=== PATIENT | female | born 1995 | race Caucasian/White ===

== ENCOUNTER 2016-09-18 02:50 | Inpatient (IN) | payer MEDICAID ==
[~2016-09-18] VITALS: Ht 154.9 cm; Wt 60.4 kg
[2016-09-18 03:11] VITALS: Ht 154.9 cm; Wt 60.4 kg
[2016-09-18 03:12] VITALS: BP 116/85; PULSE 80; RESP 18
[2016-09-18] MEDS ORDERED: PREN1TAB79 PO (03:14)
[2016-09-18] MEDS ORDERED: LACTATED RINGER'S 1,000 ML IV SCH (04:36)
[2016-09-18] MEDS ORDERED: CARBOPROST 250 MCG INJ IM PRN ×2 (05:00→17:30)
[2016-09-18] MEDS ORDERED: LACTATED RINGER'S 1,000 ML IV PRN (05:00)
[2016-09-18] MEDS ORDERED: METHYLERGONOVINE 0.2 MG INJ IM PRN ×2 (05:00→17:30)
[2016-09-18] MEDS ORDERED: AMPICILLIN 2 GM/NS (PMX) 100 ML IV ONE (05:00)
[2016-09-18] MEDS ORDERED: OXYTOCIN 30 UNITS/LR 500 ML IV SCH ×2 (05:00→10:30)
[2016-09-18] MEDS ORDERED: IBUPROFEN 600 MG TAB PO PRN (05:00)
[2016-09-18] MEDS ORDERED: LIDOCAINE 1% (MPF) 30 ML INJ INJ PRN (05:00)
[2016-09-18] MEDS ORDERED: BUTORPHANOL 2 MG INJ IV PRN (05:00)
[2016-09-18] MEDS ORDERED: MISOPROSTOL 200 MCG TAB PR PRN ×2 (05:00→17:30)
[2016-09-18] MEDS ORDERED: OXYTOCIN 30 UNITS/LR 500 ML IV PRN ×2 (05:00→17:30)
[2016-09-18 05:03] LABS: ADD SCAN DIFF NO
[2016-09-18 05:19] LABS: ABNORMAL IP MESSAGE 1; BASOPHILS % 0.4 % (0.0-2.0); EOSINOPHILS # 0.1 10^3/ul (0.0-0.5); EOSINOPHILS % 1.3 % (0.0-7.0); HEMATOCRIT 43.2 % (37.0-47.0); HEMOGLOBIN 14.8 g/dl (12.0-16.0); LYMPHOCYTES # 2.2 10^3/ul (0.8-2.9); LYMPHOCYTES % 28.5 % (18.0-55.0); MEAN CORPUSCULAR HEMOGLOBIN 31.1 pg (29.0-33.0); MEAN CORPUSCULAR HGB CONC 34.3 g/dl (32.0-37.0); MEAN CORPUSCULAR VOLUME 90.8 fl (72.0-104.0); MEAN PLATELET VOLUME 14.6 fl (7.4-10.4); MONOCYTE # 0.6 10^3/ul (0.3-0.9); MONOCYTES % 8.3 % (0.0-13.0); NEUTROPHIL # 4.7 10^3/ul (1.6-7.5); PLATELET COUNT 126 10^3/UL (140-415); RED BLOOD COUNT 4.76 10^6/ul (4.20-5.40); RED CELL DISTRIBUTION WIDTH 13.2 % (11.5-14.5); WHITE BLOOD COUNT 7.7 10^3/ul (4.8-10.8)
[2016-09-18 05:21] LABS: ADD UMIC YES; URINE BILIRUBIN (Dip) NEGATIVE (NEGATIVE); URINE BLOOD (Dip) TRACE (NEGATIVE); URINE COLOR LT. YELLOW (YELLOW); URINE GLUCOSE (Dip) NEGATIVE (NEGATIVE); URINE KETONES (Dip) NEGATIVE (NEGATIVE); URINE LEUKOCYTE ESTERASE (Dip) 1+ (NEGATIVE); URINE NITRITE (Dip) NEGATIVE (NEGATIVE); URINE TOTAL PROTEIN (Dip) NEGATIVE (NEGATIVE); URINE UROBILINOGEN (Dip) 0.2 E.U./dL (0.1-1.0)
--- NOTE | 2016-09-18 05:26 | RADRPT ---
PROCEDURE: ULTRASOUND OBSTETRICAL CLINICAL INDICATION: 21-year-old female with no care for size and date determina tion. TECHNIQUE: Multiple sonographic images of the pelvis were obtained. The images were reviewed on a PACS workstation. COMPARISON: No prior studies are available for comparison. FINDINGS: The cervix is not well visualized. There is a single viable intrauterine gestation. Cardiac activit y is present with 132 beats per minute. There is a vertex presentation. Measurements were made in or brett to determine age. The results are as follows: BPD = 8.77 cm, HC = 32.73 cm, AC = 34.47 cm, FL = 7.12 cm. This yields and estimated gestational ag e of approximately 36 weeks 6 days. The estimated date of delivery is October 10, 2016. The EFW = 3209 +/- 481 g (7 lb 1 oz). The GP is 28%. The placenta is fundal. There is no evidence for an abruption or placenta previa. IMPRESSION: 1. Single viable intrauterine gestation of approximately 36 weeks 6 days with vertex presentation. The estimated date of delivery is October 10, 2016. 2. The estimated weight is 3209 +/- 481 g (7 lb 1 oz). The GP is 28%. .Nickolas Mcneil MD, Date Time Electronically viewed and signed by .Nickolas Mcneil MD, MD on 09/18/2016 05:26 .Nahed/
--- NOTE | 2016-09-18 05:32 | TRIAGE ---
OB Triage Datetime Report Generated by CPN: 09/18/2016 05:32 Datetime: 09/18/2016 05:07 Assessment Type: Ongoing Assessment Vaginal Bleeding: None Maternal Assessment Level of Consciousness: Fully Conscious DTR's/Clonus: DTRs 2+; No Clonus Headache: Denies Blurred Vision: No Respiratory Effort: Unlabored; Regular Rhythm; Equal Expansion Breath Sounds, Left: Clear and Equal Breath Sounds, Right: Clear and Equal Nausea/Vomiting: Denies RUQ Epigastric Pain: Denies Lower Extremities Edema: None Degree: None Upper Extremities Edema: None Degree: None Facial Edema: None Fall Risk Assessment History of Falling: (0) No Secondary Diagnosis: (0) No Ambulatory Aid: (0) Bedrest/Nurse Assist IV Therapy: (20) Yes Gait: (0) Normal/Bedrest/Immobile Mental Status: (0) Oriented to Own Ability Fall Score: 20 Fall Risk Score Definition: No Risk: No action required Labor Evaluation Frequency: 2-3 Duration (sec)2399: 50-70 Quality: Strong Pattern: Normal: <= 5 Contractions in 10 Minutes Resting Tone [place]: Relaxed Heart Rate FHR Baseline Rate: 130 Variability: Moderate 6-25 bpm Accelerations: 15X15 Decelerations: None Category: Category I Pain Assessment Pain Scale: 5 Pain Presence: Intermittent Pain Type: Cramping; Contraction Pain Location: Abdomen; Perineum Pain Goal: 0 Pain Assessment Comments: PT REQUESTS EPIDURAL Vaginal Exam Dilatation (cms): 5.0 Effacement (%): 60 Station: -2 Membrane Status: Intact Datetime: 09/18/2016 04:56 Stage of : OB Triage Labor Evaluation Frequency: 1.5-4 Monitor Mode: External Duration (sec)2399: 40-90 Quality: Moderate Pattern: Normal: <= 5 Contractions in 10 Minutes Resting Tone [place]: Relaxed Heart Rate FHR Baseline Rate: 130 Monitor Mode: External US Variability: Moderate 6-25 bpm Accelerations: 15X15 Decelerations: None Category: Category I Datetime: 09/18/2016 04:38 Vaginal Exam Dilatation (cms): 5.0 Effacement (%): 60 Station: -2 Exam By: FOREST Nobles Membrane Status: Intact Vaginal Bleeding: Small Cervix, Consistency: Soft Cervix, Position: Posterior Presentation 'A': Cephalic Datetime: 09/18/2016 03:57 Stage of : OB Triage Labor Evaluation Frequency: 1.5-3 Monitor Mode: External Duration (sec)2399: 60-110 Quality: Moderate Pattern: Normal: <= 5 Contractions in 10 Minutes Resting Tone [place]: Relaxed Heart Rate FHR Baseline Rate: 125 Monitor Mode: External US FHR Baseline Changes: No Baseline Change Variability: Moderate 6-25 bpm Accelerations: 15X15 Decelerations: None Category: Category I Datetime: 09/18/2016 03:37 Stage of : OB Triage Datetime: 09/18/2016 03:33 Contraction Comments: [place] changed Datetime: 09/18/2016 03:27 Vaginal Exam Dilatation (cms): 4.0 Effacement (%): 60 Station: -2 Exam By: FOREST Nobles Membrane Status: Intact Vaginal Bleeding: None Cervix, Consistency: Soft Cervix, Position: Posterior Presentation 'A': Cephalic Datetime: 09/18/2016 03:26 Pool: Negative Nitrazine: Negative Datetime: 09/18/2016 03:09 EGA: 39.1 Datetime: 09/18/2016 03:07 Stage of : OB Triage Assessment Type: Triage Maternal Assessment Level of Consciousness: Fully Conscious DTR's/Clonus: DTRs 2+; No Clonus Headache: Denies Blurred Vision: No Respiratory Effort: Unlabored; Regular Rhythm; Equal Expansion Breath Sounds, Left: Clear and Equal Breath Sounds, Right: Clear and Equal Nausea/Vomiting: Denies RUQ Epigastric Pain: Denies Lower Extremities Edema: None Degree: None Upper Extremities Edema: None Degree: None Facial Edema: None Fall Risk Assessment History of Falling: (0) No Secondary Diagnosis: (0) No Ambulatory Aid: (0) Bedrest/Nurse Assist IV Therapy: (0) No Gait: (0) Normal/Bedrest/Immobile Mental Status: (0) Oriented to Own Ability Fall Score: 0 Fall Risk Score Definition: No Risk: No action required Pain Assessment Pain Scale: 2 Pain Presence: Intermittent Pain Type: Cramping Pain Location: Abdomen Pain Relief Measures: Comfort Measures Pain Assessment Comments: Also c/o bilateral flank pain @07/14 Datetime: 09/18/2016 03:05 Stage of : OB Triage Monitor Mode: External Contraction Comments: [place] applied Heart Rate FHR Baseline Rate: 125 Monitor Mode: External US Comments: EFM applied Datetime: 09/18/2016 03:02 Time of Arrival: 09/18/2016 02:45 Arrived By: Wheelchair Arrived From: Home Chief Complaint: SROM @0145 Movement: Present Contractions: Irregular Rupture of Membranes: Unsure Vaginal Bleeding: None Vaginal Discharge: Present Recent Sexual Intercouse: Denies Abdominal Trauma: Not Applicable Patient Complaints: Cramping; Back Pain Additional Patient Complaints: Pt states last visit to clinic was 4wks ago b/c she moved Time Provider Notified: 09/18/2016 03:37 Provider Notified: Initial Plan: EFM x2, ROM Plus, VE
[2016-09-18 05:33] LABS: INR 0.99; PROTIME 13.1 Sec (12.2-14.2)
[2016-09-18 05:34] LABS: PARTIAL THROMBOPLASTIN TIME 28.1 Sec (25.0-35.0)
[2016-09-18 05:35] LABS: SQUAMOUS EPITHELIAL CELL,UR FEW
[2016-09-18 05:36] LABS: BACTERIA,URINE RARE
[2016-09-18] MEDS ORDERED: FENTAnyl 2MCG/ML-ROPIV 0.2% 100 ML ONE (05:41)
[2016-09-18] MEDS ORDERED: FENTAnyl 2MCG/ML-ROPIV 0.2% 100 ML BAG EPI SCH (06:00)
[2016-09-18] MEDS ORDERED: NALOXONE (0.4 MG/ML) INJ IV PRN (06:00)
--- NOTE | 2016-09-18 07:11 | HP ---
Date/Time of Note Date/Time of Note DATE: 09/18/16 TIME: 07:07 OB - History Hx of Present Free Text/Dictation G1 IUP 39 weeks who presents as a panel patient. she reports she had complete PNC at a clinic out side our area. she reports she was tested negative for GDM and she had normal anatomy sono. PNC records are not available. she presents in labor. she has epidural Care: None Obstetrical Complications: None Medical Complications: None Past Family/Social History * Past Medical, Surgical, Family and Obstetric Histories reviewed from chart. OB Admission Exam Vital Signs Vital Signs Vital Signs Date Time Temp Pulse Resp B/P Pulse Ox O2 Delivery O2 Flow Rate FiO2 09/18/16 03:12 97.8 80 18 116/85 Room Air Physical Exam HEENT: WNL Heart: Rhythm Normal Lungs: Clear, Equal Abdomen: WNL Extremities: Normal Reflexes: Normal Cervical Dilatation: 5cm Effacement: 75% Last 72 hours Lab Results CBC & BMP 09/18/16 04:50 OB Assessment/Plan Reason for admission: active labor Other Assessment: PNC records not available. GBS unknown Other plan: allow labor to progress. Ampicillin SUSHMA NORTON MD September 18, 2016 07:11
[2016-09-18 08:17] LABS: BARBITURATES NEGATIVE (NEGATIVE); BENZODIAZEPINES NEGATIVE (NEGATIVE); CANNABINOIDS NEGATIVE (NEGATIVE); COCAINE NEGATIVE (NEGATIVE); OPIATES NEGATIVE (NEGATIVE)
[2016-09-18] MEDS: AMPICILLIN 1 GM/NS (PMX) 50 ML IV SCH ×2 (09:01→13:07)
--- NOTE | 2016-09-18 14:38 | LDN ---
Date/Time of Note Date/Time of Note DATE: 09/18/16 TIME: 14:37 Delivery Summary pt pushed and delivered viable without any complications. right labial and primary vaginal tear repaired. mom and baby stable to recovery. Placenta Delivered: Spontaneously Meconium: none Episiotomy: No (Please specify) Laceration repair: right labial and primary vaginal Anesthesia type: Epidural Estimated blood loss: 150 Sponge & Needle done & correct: Yes All needle counts correct: Yes Any foreign bodies felt in the: No Problems: MARQUITA ANGUIANO MD September 18, 2016 14:38
[2016-09-18] MEDS: OXYTOCIN 30 UNITS/LR 500 ML IV SCH (14:53)
[2016-09-18 16:30] VITALS: BP 128/78; PULSE 65; RESP 18
[2016-09-18 17:00] VITALS: BP 123/82; PULSE 65; RESP 18
[2016-09-18] MEDS ORDERED: BENZOCAINE 20% 56 ML SPRAY TOP PRN (17:30)
[2016-09-18] MEDS ORDERED: LANOLIN 7 GM TUBE TOP PRN (17:30)
[2016-09-18] MEDS ORDERED: WITCH HAZEL/GLYCERIN PAD PR PRN (17:30)
[2016-09-18] MEDS ORDERED: ACETAMINOPHEN/CODEINE #3 TAB PO PRN ×2 (17:30)
[2016-09-18] MEDS ORDERED: DIBUCAINE 1% 30 GM OINT PR PRN (17:30)
[2016-09-18] MEDS: IBUPROFEN 600 MG TAB PO SCH (17:39)
[2016-09-18 19:40] VITALS: BP 122/71; PULSE 72; RESP 18
[2016-09-18] MEDS: LACTATED RINGER'S 1,000 ML IV* SCH (20:19)
[2016-09-18] MEDS: SENNA/DOCUSATE NA (8.6MG/50MG) TAB PO SCH (20:33)
[2016-09-19] VITALS (7 sets, daily range): BP systolic 97–119; BP diastolic 54–71; PULSE 53–68; RESP 16–20
[2016-09-19] MEDS: IBUPROFEN 600 MG TAB PO SCH ×5 (00:05→23:30)
[2016-09-19] MEDS: LACTATED RINGER'S 1,000 ML IV* SCH (01:23)
[2016-09-19 08:16] LABS: ADD SCAN DIFF NO
[2016-09-19 08:23] LABS: ABNORMAL IP MESSAGE 1; BASOPHIL # 0.1 10^3/ul (0.0-0.1); BASOPHILS % 0.3 % (0.0-2.0); EOSINOPHILS # 0.1 10^3/ul (0.0-0.5); EOSINOPHILS % 0.8 % (0.0-7.0); HEMATOCRIT 40.3 % (37.0-47.0); HEMOGLOBIN 13.5 g/dl (12.0-16.0); LYMPHOCYTES # 1.9 10^3/ul (0.8-2.9); LYMPHOCYTES % 12.7 % (18.0-55.0); MEAN CORPUSCULAR HGB CONC 33.5 g/dl (32.0-37.0); MEAN CORPUSCULAR VOLUME 92.4 fl (72.0-104.0); MEAN PLATELET VOLUME 14.9 fl (7.4-10.4); MONOCYTE # 0.8 10^3/ul (0.3-0.9); MONOCYTES % 5.3 % (0.0-13.0); NEUTROPHIL # 12.1 10^3/ul (1.6-7.5); NEUTROPHILS % 80.4 % (30.0-74.0); PLATELET COUNT 103 10^3/UL (140-415); RED BLOOD COUNT 4.36 10^6/ul (4.20-5.40); RED CELL DISTRIBUTION WIDTH 13.8 % (11.5-14.5)
[2016-09-19] MEDS: SENNA/DOCUSATE NA (8.6MG/50MG) TAB PO SCH ×2 (09:31→20:35)
--- NOTE | 2016-09-19 10:11 | PN ---
Date/Time of Note Date/Time of Note DATE: 09/19/16 TIME: 10:09 OB Subjective Subjective Subjective Post day 1 Patient is doing well, Ambulatory She is afebrile Abdomen is soft , Fundus is firm Moderate amount of lochia Breasts are soft, Nipples are intact No calf tenderness. Perineum is healing well. Breast feeding the new born. Laboratory Tests Test 09/19/16 07:20 White Blood Count 15.010^3/ul Red Blood Count 4.3610^6/ul Hemoglobin 13.5g/dl Hematocrit 40.3% Mean Corpuscular Volume 92.4fl Mean Corpuscular Hemoglobin 31.0pg Mean Corpuscular Hemoglobin Concent 33.5g/dl Red Cell Distribution Width 13.8% Platelet Count 65142^3/UL Mean Platelet Volume 14.9fl Neutrophils % 80.4% Lymphocytes % 12.7% Monocytes % 5.3% Eosinophils % 0.8% Basophils % 0.3% Nucleated Red Blood Cells % 0.0/100WBC Neutrophils # 12.110^3/ul Lymphocytes # 1.910^3/ul Monocytes # 0.810^3/ul Eosinophils # 0.110^3/ul Basophils # 0.110^3/ul Nucleated Red Blood Cells # 0.010^3/ul Current Medications Medications (Trade) Dose Ordered Sig/Phyllis Route PRN Reason Start Time Stop Time Status Last Admin Dose Admin Lactated Ringer's 1,000 ml @ 125 mls/hr Q8H IV 09/18/16 04:36 09/18/16 17:26 DC 09/18/16 08:06 Ampicillin 100 ml @ 100 mls/hr ONCE ONCE IV 09/18/16 05:00 09/18/16 05:59 DC 09/18/16 05:42 Ampicillin (Ampicillin 1 Gm/ NS (Pmx)) 50 ml @ 100 mls/hr Q4H IV 09/18/16 09:00 09/18/16 17:26 DC 09/18/16 13:07 Butorphanol Tartrate (Stadol) 2 mg Q2H PRN IV PAIN 09/18/16 05:00 09/18/16 17:26 DC Lidocaine 30 ml 30 ml ONCE PRN INJ EPISIOTOMY/TEARING 09/18/16 05:00 09/18/16 17:26 DC Oxytocin/Lactated Ringer's 500 ml @ 125 mls/hr ONCE -MAY REPEAT X1 IV 09/18/16 05:00 09/18/16 17:26 DC 09/18/16 14:53 Oxytocin/Lactated Ringer's 500 ml @ 125 mls/hr ONCE IV 09/18/16 05:00 09/18/16 17:26 DC Ibuprofen 600 mg 600 mg ONCE PRN PO Mild Pain (Pain Score 1-3) 09/18/16 05:00 09/18/16 17:26 DC Lactated Ringer's 1,000 ml @ 2,000 mls/hr Q30M PRN IV PRE-EPIDURAL BOLUS 09/18/16 05:00 09/18/16 17:26 DC 09/18/16 04:54 Oxytocin/Lactated Ringer's 500 ml @ 0 mls/hr ONCE PRN IV For Hemorrhage Management 09/18/16 05:00 09/18/16 17:26 DC Methylergonovine Maleate (Methergine) 0.2 mg ONCE PRN IM VAGINAL BLEEDING 09/18/16 05:00 09/18/16 17:26 DC Carboprost Tromethamine (Hemabate) 250 mcg ONCE PRN IM VAGINAL BLEEDING 09/18/16 05:00 09/18/16 17:27 DC Misoprostol 1000 mcg 1,000 mcg ONCE PRN UT VAGINAL BLEEDING 09/18/16 05:00 09/18/16 17:27 DC Fentanyl/ Ropivacaine 100 ml @ ud STK-MED ONCE .ROUTE 09/18/16 05:41 09/18/16 05:42 DC Naloxone HCl (Narcan) 0.2 mg Q2M PRN IV FOR RESP RATE 8 OR LESS 09/18/16 06:00 09/18/16 17:27 DC Fentanyl/ Ropivacaine 100 ml 100 ml EPIDURAL (PCEA) EPI 09/18/16 06:00 09/18/16 17:27 DC 09/18/16 13:05 Oxytocin/Lactated Ringer's 500 ml @ 0 mls/hr Q0M IV 09/18/16 10:30 09/18/16 17:27 DC Lactated Ringer's (Lr) 1,000 ml @ 125 mls/hr Q8H IV* 09/18/16 17:23 09/18/16 20:19 Ibuprofen (Motrin) 600 mg Q6 PO 09/18/16 18:00 09/19/16 05:59 Acetaminophen/ Codeine Phosphate (Tylenol No.3) 1 tab Q4H PRN PO PAIN LEVEL 1-5 09/18/16 17:30 Acetaminophen/ Codeine Phosphate (Tylenol No.3) 2 tab Q4H PRN PO PAIN LEVEL 6-10 09/18/16 17:30 Senna/Docusate Sodium (Senokot-S) 1 tab BID PO 09/18/16 21:00 09/19/16 09:31 Witch [place]/ Glycerin (Tucks Pads) 1 pad BEDSIDE MEDICATION PRN UT HEMORRHOID/EPISIOTMY PAIN 09/18/16 17:30 09/18/16 17:40 Benzocaine (Dermoplast [place]) 1 spray BEDSIDE MEDICATION PRN TOP HEMORRHOID/EPISIOTMY PAIN 09/18/16 17:30 09/18/16 17:39 Dibucaine (Nupercainal) 1 applic BEDSIDE MEDICATION PRN UT HEMORRHOID/EPISIOTMY PAIN 09/18/16 17:30 Lanolin 1 applic 1 applic BEDSIDE MEDICATION PRN TOP BEDSIDE FOR LETY TO NIPPLES 09/18/16 17:30 09/18/16 17:40 Oxytocin/Lactated Ringer's 500 ml @ 0 mls/hr ONCE PRN IV For Hemorrhage Management 09/18/16 17:30 Methylergonovine Maleate (Methergine) 0.2 mg ONCE PRN IM VAGINAL BLEEDING 09/18/16 17:30 Carboprost Tromethamine (Hemabate) 250 mcg ONCE PRN IM VAGINAL BLEEDING 09/18/16 17:30 Misoprostol (Cytotec) 1,000 mcg ONCE PRN UT VAGINAL BLEEDING 09/18/16 17:30 MAGGIE STEINBERG MD September 19, 2016 10:11
[2016-09-19 14:55] LABS: RUBELLA ANTIBODY - IGG 1.54 index
[2016-09-20 03:30] VITALS: BP 115/70; PULSE 60; RESP 19
[2016-09-20] MEDS: IBUPROFEN 600 MG TAB PO SCH ×2 (05:42→12:11)
[2016-09-20 08:00] VITALS: BP 99/65; PULSE 56; RESP 18
[2016-09-20] MEDS: SENNA/DOCUSATE NA (8.6MG/50MG) TAB PO SCH (10:01)
[2016-09-20 15:30] VITALS: BP 117/69; PULSE 65; RESP 18
--- NOTE | 2016-09-20 15:44 | PN ---
Date/Time of Note Date/Time of Note DATE: 09/20/16 TIME: 15:41 OB Subjective Subjective Subjective Patient denies any complaints. She is ambulating. Breast-feeding. Vaginal bleeding minimal. Denies any depressive symptoms. Patient has a history of pyelonephritis and current . Had been on suppressive treatment with Macrobid 1 pill a day. Denies any urinary symptoms. OB Objective Objective Objective Const: GA A&O, NAD Head: Atraumatic normocephalic Eyes: [Normal Conjunctiva]] Resp: [Clear to auscultation bilaterally] Cardio: [Regular rate and rhythm, no murmurs] Abd: [Soft, non tender, non distended. Normal bowel sounds] fundal height palpable 2 cm below the umbilicus consistent with uterus Skin: [No petechiae or rashes] Ext: [No cyanosis, or edema], no calf tenderness no click no edema negative Homans sign, Neuro: [Awake and alert] Psych: [Normal Mood and Affect] no evidence of depression Breasts: No evidence of mastitis or nipple fissure. No breast engorgement Pelvic exam deferred Hematology - 72 Hrs Test 09/18/16 04:50 09/19/16 07:20 White Blood Count 7.710^3/ul (4.8-10.8) 15.010^3/ul (4.8-10.8) #H Red Blood Count 4.7610^6/ul (4.20-5.40) 4.3610^6/ul (4.20-5.40) Hemoglobin 14.8g/dl (12.0-16.0) 13.5g/dl (12.0-16.0) Hematocrit 43.2% (37.0-47.0) 40.3% (37.0-47.0) Mean Corpuscular Volume 90.8fl (72.0-104.0) 92.4fl (72.0-104.0) Mean Corpuscular Hemoglobin 31.1pg (29.0-33.0) 31.0pg (29.0-33.0) Mean Corpuscular Hemoglobin Concent 34.3g/dl (32.0-37.0) 33.5g/dl (32.0-37.0) Red Cell Distribution Width 13.2% (11.5-14.5) 13.8% (11.5-14.5) Platelet Count 47399^3/UL (140-415) L 68284^3/UL (140-415) L Mean Platelet Volume 14.6fl (7.4-10.4) H 14.9fl (7.4-10.4) H Neutrophils % 61.0% (30.0-74.0) 80.4% (30.0-74.0) H Lymphocytes % 28.5% (18.0-55.0) 12.7% (18.0-55.0) L Monocytes % 8.3% (0.0-13.0) 5.3% (0.0-13.0) Eosinophils % 1.3% (0.0-7.0) 0.8% (0.0-7.0) Basophils % 0.4% (0.0-2.0) 0.3% (0.0-2.0) Nucleated Red Blood Cells % 0.0/100WBC (0.0-0.0) 0.0/100WBC (0.0-0.0) Neutrophils # 4.710^3/ul (1.6-7.5) 12.110^3/ul (1.6-7.5) H Lymphocytes # 2.210^3/ul (0.8-2.9) 1.910^3/ul (0.8-2.9) Monocytes # 0.610^3/ul (0.3-0.9) 0.810^3/ul (0.3-0.9) Eosinophils # 0.110^3/ul (0.0-0.5) 0.110^3/ul (0.0-0.5) Basophils # 0.010^3/ul (0.0-0.1) 0.110^3/ul (0.0-0.1) Nucleated Red Blood Cells # 0.010^3/ul (0.0-0.0) 0.010^3/ul (0.0-0.0) OB Assessment/Plan Other Assessment: Status post day #2 Doing well Discharge home History of pyelonephritis in current . Was on suppressive treatment with Macrobid once a day. Recommended to continue Macrobid for prophylactic treatment until 6 weeks with a follow-up with her primary OB at 6 weeks for check DEREK FLOREZ MD September 20, 2016 15:44
== END 2016-09-20 17:39 | disposition home or self-care (01) | DRG 775 ==
LOC: OBT 02:50 → L-D 02:50 → OBT 04:40 → PP1 16:20
PROVIDERS: ADMIT Specialist; ATTEND Specialist
PROC: 10E0XZZ Delivery of Products of Conception, External Approach (ICD-10-PCS; principal; 2016-09-18)
PROC: 0HQ9XZZ Repair Perineum Skin, External Approach (ICD-10-PCS; 2016-09-18)
PROC: 4A1HX4Z Monitoring of Products of Conception, Cardiac Electrical Activity, External Approach (ICD-10-PCS; 2016-09-18)
DX: O70.0 First degree perineal laceration during delivery (principal); Z37.0 Single live birth; Z3A.39 39 weeks gestation of pregnancy
CPT/HCPCS: 36415; 62319; 76815; 80307; 81001; 81003; 84112; 85025; 85610; 85730; 86592; 86703; 86762; 86900; 86901; 87340; G0463; J0290; J2590; J3010; J7120

== ENCOUNTER 2017-05-11 20:18 | Emergency (ER) | END 2017-05-12 01:32 | disposition home or self-care (01) ==